=== PATIENT | male | born 1980 | race Caucasian/White ===

== ENCOUNTER 2021-02-25 10:38 | Outpatient (REF) | payer OTHER, SELFPAY ==
[2021-02-25 10:55] LABS: MANUAL DIFF FLAG NO
[2021-02-25 11:18] LABS: Basophils Percent Auto 0.1 % (0-2); Eosinophils Absolute Auto 0.2 X10*3/uL (0.0-0.4); Eosinophils Percent Auto 2.3 % (0-4); Imm Gran Abs Auto 0.01 X10*3/uL (0.00-0.03); Imm Gran Pct Auto 0.1 % (0.0-0.4); Lymphocytes Absolute Auto 3.2 X10*3/uL (1.2-4.9); Lymphocytes Percent Auto 41.8 % (20-40); Mean Corpuscular HGB Conc 32.6 g/dl (31.0-36.0); Mean Platelet Volume 9.5 fL (9.4-12.4); Monocytes Absolute Auto 0.9 X10*3/uL (0.1-1.2); Monocytes Percent Auto 11.7 % (2-11); Neutrophils Absolute Auto 3.4 X10*3/uL (2.0-8.3); Platelet Count 293 X10*3/uL (160-400); Red Blood Count 4.84 X10*6/uL (4.60-5.80); Red Cell Distribution Width 13.6 % (11.0-16.0); White Blood Count 7.7 X10*3/uL (4.8-10.8)
[2021-02-25 11:34] LABS: Estimated Average Glucose 232 mg/dL; Hemoglobin A1c % 9.7 %
[2021-02-25 11:40] LABS: Glucose Urine UA 100 MG/DL (NEG); Leukocyte Esterase Urine NEG (NEG); Nitrite Urine NEG (NEG); PH 8.5 (5.0-8.0); Specific Gravity - Urine 1.015 (1.005-1.025); Urine Blood NEG (NEG); Urine Ketones NEG (NEG); Urine Protein TRACE MG/DL (NEG-TRACE)
[2021-02-25 11:43] LABS: Appearance Urine CLEAR; Color Urine YELLOW
[2021-02-25 12:09] LABS: PSA,Total (Free>4and<10) 0.27 ng/mL (0.00-4.00)
[2021-02-25 12:11] LABS: Creatinine Urine 112.48 mg/dL; Microalbum/Creatinine Ratio Ur 6.2 ug/mg cr
[2021-02-25 12:35] LABS: Alanine Aminotransferase 25 U/L (0-40); Albumin Level 4.2 g/dL (3.5-5.0); Alkaline Phosphatase 59 U/L (39-117); Anion Gap 14 (12-20); Aspartate Amino Transferase 18 U/L (5-37); Bilirubin Total 0.8 mg/dL (0.0-1.0); Blood Urea Nitrogen 13 mg/dL (9-16); Carbon Dioxide 29 mmol/L (22-29); Chloride 105 mmol/L (96-108); Cholesterol 170 mg/dL; Estimated Glomerular Filt Rate > 60; Glucose Fasting 54 mg/dL (60-99); HDL Cholesterol 53 mg/dL; LDL Cholesterol Calculated 103 mg/dl; Sodium 144 mmol/L (135-145); Total Protein 6.6 g/dL (6.5-8.0); Triglycerides 73 mg/dL
[2021-02-25 13:32] LABS: Reflex LDLD? No
== END 2021-02-25 10:39 | disposition home or self-care (01) ==
LOC: HO.LNP 10:38
PROVIDERS: Visit Provider Internal Medicine
DX: Z00.00 Encounter for general adult medical examination without abnormal findings (principal); Z12.5 Encounter for screening for malignant neoplasm of prostate; E10.9 Type 1 diabetes mellitus without complications; E78.00 Pure hypercholesterolemia, unspecified
CPT/HCPCS: 80053; 80061; 81003; 82043; 83036; 84153; 85025

== ENCOUNTER 2022-03-03 11:27 | Outpatient (REF) | payer OTHER, SELFPAY ==
[2022-03-03 11:31] LABS: MANUAL DIFF FLAG NO
[2022-03-03 12:32] LABS: Basophils Percent Auto 0.5 % (0-2); Eosinophils Absolute Auto 0.2 X10*3/uL (0.0-0.4); Eosinophils Percent Auto 2.9 % (0-4); Hematocrit 43.7 % (42.0-52.0); Hemoglobin 14.4 g/dl (14.0-18.0); Imm Gran Abs Auto 0.01 X10*3/uL (0.00-0.03); Imm Gran Pct Auto 0.2 % (0.0-0.4); Lymphocytes Absolute Auto 2.4 X10*3/uL (1.2-4.9); Mean Corpuscular Hemoglobin 30.9 pg (27.0-33.0); Mean Corpuscular Volume 93.8 fL (80.0-98.0); Mean Platelet Volume 10.5 fL (9.4-12.4); Monocytes Percent Auto 18.4 % (2-11); Platelet Count 244 X10*3/uL (160-400); Red Blood Count 4.66 X10*6/uL (4.60-5.80); Red Cell Distribution Width 13.1 % (11.0-16.0); White Blood Count 5.6 X10*3/uL (4.8-10.8)
[2022-03-03 12:34] LABS: Appearance Urine CLEAR; Color Urine YELLOW; Glucose Urine UA NEG (NEG); Leukocyte Esterase Urine NEG (NEG); Nitrite Urine NEG (NEG); PH 5.5 (5.0-8.0); Specific Gravity - Urine >= 1.030 (1.005-1.025); Urine Blood NEG (NEG); Urine Ketones 5 MG/DL (NEG); Urine Protein NEG (NEG-TRACE)
[2022-03-03 12:59] LABS: Alanine Aminotransferase 23 U/L (0-40); Albumin Level 3.9 g/dL (3.5-5.0); Alkaline Phosphatase 58 U/L (39-117); Anion Gap 11 (12-20); Aspartate Amino Transferase 23 U/L (5-37); Bilirubin Total 1.1 mg/dL (0.0-1.0); Blood Urea Nitrogen 15 mg/dL (9-16); Calcium 8.9 mg/dL (8.4-10.2); Carbon Dioxide 27 mmol/L (22-29); Chloride 106 mmol/L (96-108); Cholesterol 214 mg/dL; Estimated Glomerular Filt Rate > 60; Glucose Fasting 63 mg/dL (60-99); HDL Cholesterol 57 mg/dL; LDL Cholesterol Calculated 150 mg/dl; Potassium 4.1 mmol/L (3.3-5.1); Sodium 140 mmol/L (135-145); Total Protein 6.3 g/dL (6.5-8.0); Triglycerides 37 mg/dL
[2022-03-03 13:12] LABS: Estimated Average Glucose 220 mg/dL; Hemoglobin A1c % 9.3 %; PSA,Total (Free>4and<10) 0.18 ng/mL (0.00-4.00)
[2022-03-03 13:24] LABS: Microalbum/Creatinine Ratio Ur 3.3 ug/mg cr
== END 2022-03-03 11:28 | disposition home or self-care (01) ==
LOC: HO.LNP 11:27
PROVIDERS: PCP Internal Medicine; Visit Provider Internal Medicine
DX: Z00.00 Encounter for general adult medical examination without abnormal findings (principal); Z12.5 Encounter for screening for malignant neoplasm of prostate; E10.9 Type 1 diabetes mellitus without complications; E78.00 Pure hypercholesterolemia, unspecified; F17.200 Nicotine dependence, unspecified, uncomplicated
CPT/HCPCS: 80053; 80061; 81003; 82043; 83036; 84153; 85025

== ENCOUNTER 2022-03-06 10:45 | Outpatient (REF) | payer OTHER, SELFPAY ==
[2022-03-06 10:47] LABS: MANUAL DIFF FLAG NO
[2022-03-06 11:27] LABS: Basophils Percent Auto 0.3 % (0-2); Eosinophils Absolute Auto 0.2 X10*3/uL (0.0-0.4); Hematocrit 45.1 % (42.0-52.0); Imm Gran Abs Auto 0.02 X10*3/uL (0.00-0.03); Imm Gran Pct Auto 0.3 % (0.0-0.4); Lymphocytes Absolute Auto 3.2 X10*3/uL (1.2-4.9); Lymphocytes Percent Auto 43.7 % (20-40); Mean Corpuscular HGB Conc 33.3 g/dl (31.0-36.0); Mean Corpuscular Hemoglobin 31.1 pg (27.0-33.0); Mean Corpuscular Volume 93.6 fL (80.0-98.0); Mean Platelet Volume 10.1 fL (9.4-12.4); Monocytes Percent Auto 13.8 % (2-11); Neutrophils Absolute Auto 2.8 x10*3/uL (2.0-8.3); Neutrophils Percent Auto 38.9 % (45-73); Platelet Count 258 X10*3/uL (160-400); Red Blood Count 4.82 X10*6/uL (4.60-5.80); Red Cell Distribution Width 12.8 % (11.0-16.0); White Blood Count 7.3 X10*3/uL (4.8-10.8)
== END 2022-03-06 10:46 | disposition home or self-care (01) ==
LOC: HO.LNP 10:45
PROVIDERS: Visit Provider Internal Medicine
DX: D72.821 Monocytosis (symptomatic) (principal)
CPT/HCPCS: 85025

== ENCOUNTER 2022-09-11 10:45 | Outpatient (REF) | payer OTHER, SELFPAY ==
[2022-09-11 11:26] LABS: Estimated Average Glucose 243 mg/dL; Hemoglobin A1c % 10.1 %
[2022-09-11 11:36] LABS: Alanine Aminotransferase 25 U/L (0-40); Albumin Level 3.9 g/dL (3.5-5.0); Alkaline Phosphatase 88 U/L (39-117); Aspartate Amino Transferase 16 U/L (5-37); Bilirubin Direct 0.2 mg/dL (0.0-0.5); Bilirubin Total 0.5 mg/dL (0.0-1.0); Cholesterol 196 mg/dL; Glucose Fasting 41 mg/dL (60-99); HDL Cholesterol 57 mg/dL; LDL Cholesterol Calculated 124 mg/dl; Total Protein 6.3 g/dL (6.5-8.0); Triglycerides 79 mg/dL
[2022-09-11 12:04] LABS: Reflex LDLD? No
== END 2022-09-11 10:46 | disposition home or self-care (01) ==
LOC: HO.LNP 10:45
PROVIDERS: Visit Provider Internal Medicine
DX: E10.9 Type 1 diabetes mellitus without complications (principal); E78.00 Pure hypercholesterolemia, unspecified
CPT/HCPCS: 80061; 80076; 82947; 83036

== ENCOUNTER 2023-09-20 08:54 | Outpatient (AMB) | payer OTHER, SELFPAY ==
[2023-09-20 09:03] VITALS: BP 118/58; BMI 24.2
--- NOTE | 2023-09-20 09:03 | A.OFFVIS_ITS ---
Intake Vital Signs 09/20/23 09:03 Height 6 ft Weight 178 lb 2.136 oz BMI 24.2 BP 118/58 L Blood Pressure Location Rt brachial Position Sitting Intake Visit Reasons: infected sebaceous cyst Intake Note: Patient referred for cyst on back. Has been present for a couple of months. noticed changes in color. Looks purple. C/ o tender to touch. No hx of trauma to area. [employer] Required: No Accompanied by: Self / Same As Patient Allergies No Known Allergies Allergy (Verified 09/20/23 09:05) HPI HPI Comments History of Present Illness Details Patient has a longstanding history of a right mid back sebaceous cyst which over the last 3 weeks has become painful and red . Patient has not seen a physician for for this. Now presents here for further evaluation. Chart was reviewed and patient evaluated. COUNT INCLUDES [facility] Medical History (Updated 09/20/23 @ 09:06 by SAMINA Mcnally) Carpal tunnel syndrome of right wrist Social History (Updated 09/20/23 @ 09:07 by SAMINA Mcnally) Alcohol intake: current Alcohol type: hard liquor Patient Tobacco Use Status: Current someday Tobacco user Tobacco use type: Cigarette Cigarettes Per Day: 15 Physical Exam Vital Signs: Last Vital Signs BP 118/58 L 09/20/23 09:03 BMI result Body Mass Index 24.2 Back/Spine/Pelvis Other: Right mid back demonstrates approximately 3 x 2 cm inflamed sebaceous cyst. Moderately tender. No obvious fluctuance. Assessment & Plan Assessment & Plan (1) Infected sebaceous cyst: Code(s): L72.3 - Sebaceous cyst; L08.9 - Local infection of the skin and subcutaneous tissue, unspecified Plan Current plan is to attempt conservative therapy. Patient has been given local instructions the form of warm compresses well as script for antibiotics. See me proximal weeks time. If symptoms progress or worsen, he should contact the office we will see him sooner for incision and drainage. Coding Level of Care Code New Pt Level 4 (17697) Diagnoses Infected sebaceous cyst L72.3; L08.9
== END 2023-09-20 09:21 | disposition home or self-care (01) ==
PROVIDERS: PCP Internal Medicine; Visit Provider Surgery
DX: L72.3 Sebaceous cyst (principal); L08.9 Local infection of the skin and subcutaneous tissue, unspecified
CPT/HCPCS: 99204

== ENCOUNTER → 2023-09-20 08:54 | Outpatient (BNVA) | payer OTHER, SELFPAY | PROVIDERS: PCP Internal Medicine; Visit Provider Surgery ==

== ENCOUNTER 2023-09-27 15:36 | Outpatient (AMB) | payer OTHER, SELFPAY ==
--- NOTE | 2023-09-27 15:39 | A.OFFVIS_ITS ---
Intake Vital Signs 09/27/23 15:40 Weight 178 lb BP 118/58 L Blood Pressure Location Rt brachial Position Sitting Pulse 98 Intake Visit Reasons: 1 wk follow up infected sebaceous cyst Intake Note: Patient here 1wk f/u cyst on back. Reports cyst healing well. Almost done with cephalexin course. Head Resident Required: No Accompanied by: Self / Same As Patient Allergies No Known Allergies Allergy (Verified 09/27/23 15:41) HPI HPI Comments History of Present Illness Details Patient presents for follow-up. He has a marked improvement of his right upper back infected sebaceous cyst. He is completing his antibiotic course. [facility] Medical History Carpal tunnel syndrome of right wrist Social History Alcohol intake: current Alcohol type: hard liquor Patient Tobacco Use Status: Current someday Tobacco user Tobacco use type: Cigarette Cigarettes Per Day: 15 Physical Exam Vital Signs: Last Vital Signs Pulse 98 09/27/23 15:40 BP 118/58 L 09/27/23 15:40 Back/Spine/Pelvis Other: Significant reduction in erythema and edema of upper back sebaceous cyst. No evidence of fluctuance. Assessment & Plan Assessment & Plan (1) Infected sebaceous cyst: Code(s): L72.3 - Sebaceous cyst; L08.9 - Local infection of the skin and subcutaneous tissue, unspecified Plan Current plan is continue conservative therapy. Patient will see me as directed or p.r.n.. Once the infective process is completely resolved, consideration for excision will be undertaken. All questions were answered. Coding Level of Care Code Est Pt Level 4 (93842) Diagnoses Infected sebaceous cyst L72.3; L08.9
[2023-09-27 15:40] VITALS: BP 118/58; PULSE 98
== END 2023-09-27 15:48 | disposition home or self-care (01) ==
PROVIDERS: PCP Internal Medicine; Visit Provider Surgery
DX: L72.3 Sebaceous cyst (principal); L08.9 Local infection of the skin and subcutaneous tissue, unspecified
CPT/HCPCS: 99214

== ENCOUNTER → 2023-09-27 15:36 | Outpatient (BNVA) | payer OTHER, SELFPAY | PROVIDERS: PCP Internal Medicine; Visit Provider Surgery ==

== ENCOUNTER 2023-10-18 13:52 | Outpatient (REF) | payer OTHER, SELFPAY | END 2023-10-18 13:53 | disposition home or self-care (01) | LOC: HO.LNP 13:52 | PROVIDERS: PCP Internal Medicine; Visit Provider Surgery | DX: L72.3 Sebaceous cyst (principal); L08.9 Local infection of the skin and subcutaneous tissue, unspecified | CPT/HCPCS: 11403; 88304 ==

== ENCOUNTER 2023-10-18 13:52 | Outpatient (AMB) | payer OTHER, SELFPAY ==
[2023-10-18 13:59] VITALS: BP 128/63; PULSE 71; BMI 23.9
--- NOTE | 2023-10-18 13:59 | MHC.OFFVIS ---
Intake Vital Signs 10/18/23 13:59 Height 6 ft Weight 176 lb BMI 23.9 BP 128/63 Blood Pressure Location Rt brachial Position Sitting Pulse 71 Intake Visit Reasons: 3 wk follow up infected sebaceous cyst Intake Note: Patient here for cyst excision on Rt upper back. Finished Cephalexin. Denies oozing, pain. [employer] Required: No Accompanied by: Self / Same As Patient Allergies No Known Allergies Allergy (Verified 10/18/23 14:00) Medication List - Last Reconciled 10/18/23 by Simon Chong MD cephalexin 500 mg PO TID insulin glargine (Lantus U-100 Insulin) 10 units subcut QPM insulin lispro (Humalog U-100 Insulin) 8 units subcut TID HPI HPI Comments History of Present Illness Details Patient presents for elective excision of a right upper back sebaceous cyst. [facility] Medical History Carpal tunnel syndrome of right wrist Social History Alcohol intake: current Alcohol type: hard liquor Patient Tobacco Use Status: Current someday Tobacco user Tobacco use type: Cigarette Cigarettes Per Day: 15 Physical Exam Vital Signs: Last Vital Signs Pulse 71 10/18/23 13:59 BP 128/63 10/18/23 13:59 BMI result Body Mass Index 23.9 Office Procedures Excision Details: Risks, benefits, alternatives of excision of right upper back sebaceous cyst reviewed the patient and included but not limited to bleeding, infection, recurrence, numbness, pain, scarring, wound dehiscence and the patient wished to proceed. All questions were answered. Consent was signed. After appropriate positioning, patient's right upper back underwent 1% lidocaine and Betadine prep or transverse by elliptical incision approximately 3 x 2 cm upper back sebaceous cyst was uneventfully performed. Specimen sent to pathology. Wounds irrigated, secured hemostasis, and closed using running subcuticular 3-0 Vicryl suture followed by Steri-Strips and sterile dressing. Patient tolerated procedure well. 49771-atdsy/arms/legs 2.1-3cm Procedure code (CPT) selection complete Office Meds lidocaine 1 %-epinephrine 1:100,000 injection solution Performing Provider: Simon Chong MD Performing Location: [facility] Administered by: Simon Chong MD on 10/18/23 14:21 Dose Route Admin Location Dispensed Lot Number Expiration Date NDC Payment Manager 10 mL Infiltration 10 mL Assessment & Plan Assessment & Plan (1) Sebaceous cyst: Code(s): L72.3 - Sebaceous cyst Plan: Patient has been given local instructions in particular avoiding strenuous activities for next 2 weeks time, may shower in 2 days, ice to wound p.r.n., Tylenol or Motrin p.r.n. pain and follow-up as directed or p.r.n. Orders: Orders AMB Excision Today L72.3 - Sebaceous cyst Coding Level of Care Code Est Pt Level 4 (48910) Diagnoses Sebaceous cyst L72.3 CPT Codes Trunk/Arms/Legs - CPT: 56836-jddrf/arms/legs 2.1-3cm ([id number])
== END 2023-10-18 14:35 | disposition home or self-care (01) ==
PROVIDERS: PCP Internal Medicine; Visit Provider Surgery
DX: L72.0 Epidermal cyst (principal)
CPT/HCPCS: 11403

== ENCOUNTER 2023-10-26 15:34 | Outpatient (AMB) | payer OTHER, SELFPAY ==
--- NOTE | 2023-10-26 15:36 | A.OFFVIS_ITS ---
Intake Intake Visit Reasons: s/p exc rt upper back Intake Note: Patient here s/p exc on back. Reports incision healing well. Denies bleeding, pain, oozing. [employer] Required: No Accompanied by: Self / Same As Patient Allergies No Known Allergies Allergy (Verified 10/26/23 15:36) HPI HPI Comments History of Present Illness Details Patient presents for follow-up. He has no wound issues or complaints. Pathology is benign. [facility] Medical History Carpal tunnel syndrome of right wrist Social History Alcohol intake: current Alcohol type: hard liquor Patient Tobacco Use Status: Current someday Tobacco user Tobacco use type: Cigarette Cigarettes Per Day: 15 Physical Exam Back/Spine/Pelvis Other: Upper back wound clean dry and intact healing uneventfully. Assessment & Plan Assessment & Plan (1) Sebaceous cyst: Code(s): L72.3 - Sebaceous cyst Plan Patient has been given local instructions including avoiding strenuous activities for next 2 weeks time and will otherwise follow up p.r.n.. Coding Level of Care Code Global (51794) Diagnoses Sebaceous cyst L72.3
== END 2023-10-26 15:38 | disposition home or self-care (01) ==
PROVIDERS: PCP Internal Medicine; Visit Provider Surgery
DX: L72.3 Sebaceous cyst (principal)
CPT/HCPCS: 99024

== ENCOUNTER → 2023-10-26 15:34 | Outpatient (BNVA) | payer OTHER, SELFPAY | PROVIDERS: PCP Internal Medicine; Visit Provider Surgery ==